=== PATIENT | male | born 1985 | race Caucasian/White ===

== ENCOUNTER 2016-07-01 05:34 | Emergency (ER) | payer SELFPAY ==
[2016-07-01 05:56] VITALS: TEMP 97.5; BMI 28.1
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
[2016-07-01] MEDS ORDERED: METOCLOPRAMIDE 10 MG/2 ML VIAL IM ONE (06:10)
[2016-07-01] MEDS ORDERED: KETOROLAC TROMETHAMINE 60 MG/2 ML SDV IM ONE (06:10)
[2016-07-01] MEDS ORDERED: DIPHENHYDRAMINE 50 MG/ML VIAL IM ONE (06:11)
[2016-07-01] MEDS ORDERED: DEXAMETHASONE PF 10 MG/1 ML VIAL IM ONE (06:41)
[2016-07-01 07:23] VITALS: BP 134/74; PULSE 68
== END 2016-07-01 07:24 | disposition home or self-care (01) ==
LOC: ED 05:34
DX: R51 Headache (principal)
CPT/HCPCS: 96372; 99283; J1100; J1200; J1885; J2765